=== PATIENT | male | born 1985 | race Caucasian/White ===

== ENCOUNTER → 2017-01-24 | Outpatient (CLI) | payer OTHER ==
[~2017-01-24] MED LIST: ALBUTEROL17 GM INH; ALPRAZOLAM PO; BACTRIM DS TABL1 TA1 PO; BENTYL20 MG PO; CITRATE OF MAG296 M1; CLEOCIN PO; COLACE; ERY-TAB500 MG PO; FLEXERIL10 MG PO; KLONOPIN PO; LIBRIUM25 MG PO; PHENERGAN25 MG PO; PREDNISONE PO; PROZAC PO; PROZAC40 MG PO; TOPROL XL 50 MG50 MG PO; TOPROL XL PO; TYLENOL #3 PO; ULTRAM PO; VICODIN 5/1 TAB 5/50 PO; VOLTAREN75 MG PO; XANAX1 MG PO; ZOFRAN ODT4 MG PO; ZYVOX600 MG PO
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
== END | disposition home or self-care (01) ==
LOC: SRAD 13:12
DX: R07.81 Pleurodynia (principal); R07.9 Chest pain, unspecified
CPT/HCPCS: 71020; 71100